=== PATIENT | female | born 1985 | race Caucasian/White ===

== ENCOUNTER 2016-06-05 06:48 | Inpatient (IN) | payer OTHER ==
[2016-06-05] MEDS ORDERED: LIDOCAINE 1% (PRES FREE) 30 ML VIAL ONE (07:00)
[2016-06-05] MEDS ORDERED: OXYTOCIN IN LR 0 ML IV ONE (07:00)
[2016-06-05] MEDS ORDERED: PUMP TUBING ONE (07:00)
[2016-06-05] MEDS ORDERED: OXYTOCIN 10 UNITS/ML VIAL ONE (07:00)
[2016-06-05] MEDS ORDERED: MINERAL OIL 25 ML BOT ONE (07:00)
[2016-06-05] MEDS ORDERED: LIDOCAINE Viscous 2% 15 ML UDCUP ONE (07:00)
[2016-06-05] MEDS ORDERED: OXYTOCIN 10 UNITS/ML VIAL IM ONE (08:25)
[2016-06-05] MEDS ORDERED: ACETAMINOPHEN 325 MG TABLET PO PRN (08:30)
[2016-06-05] MEDS ORDERED: DOCUSATE SODIUM 100 MG CAPSULE PO PRN (08:30)
[2016-06-05] MEDS ORDERED: BENZOCAINE/MENTHOL 60 APPLIC/BOT TP PRN (08:30)
[2016-06-05] MEDS ORDERED: LANOLIN 50 APPLIC/7G TUBE TP PRN (08:30)
--- NOTE | 2016-06-05 09:56 | PCMAN ---
OB Admission Note - History : 2 Term: 1 Livin Gestational Age (weeks): 39 Days (#/7): 6 Admit Cervical Dilation:: 10 Admit Station:: +2 Admit Presentaton:: vertex Membrane Status: Ruptured Rupture (Date): 06/05/16 Rupture (Time): 05:50 Membranes Comment:: clear Labor Onset (Date): 06/05/16 Contractions: Yes Contraction Frequency:: 2-3 mins Status:: Cat 1 EFW:: 7lbs 9 ozs Summary of Course:: Morenita presented to labor and delivery in active labor with an urge to push. She was moved to a triage room and laid on the bed on her side. With each contraction she was encouraged to bear down. She quickly delivered a viable female infant without any tears. Onset of care was at 22 weeks. She had 10 visits. Weight gain of 10lbs. Dated by a first trimester UN. GBS was negative. Her care was complicated by elevated BPs at 37 weeks. She was monitored for GHTN. No labs drawn and she remained asymptomatic for pre-eclampsia. - Labs Blood Type: A (+) positive Rubella Status: Immune GBS Status: Negative - Physical Exam General: Moderate Distress Neurological: Alert Cardiovascular: Regular Rate and Rhythm Genitourinary: Normal Female Genitalia Rectal Exam: Deferred Extremities: Full ROM Skin: Normal Color, Warm, Dry - Problems (1) Active labor Status: Acute Code: [id number]/Plan: A/ Term , , at 39 weeks and 6 days SROM for clear fluid Active labor P/ Anticipate imminent vaginal
--- NOTE | 2016-06-05 10:07 | PCMDEL ---
Delivery Note - Labor 1st stage (hr/min):: 4 hours and 42 mins 2nd stage (hr/min):: 10 mins 3rd stage (hr/min):: 20 mins Pushed (hr/min):: 10 mins - Delivery Delivery (Date): 06/05/16 Delivery (Time): 07:12 Gender: Female Position: OA Umbilical Cord: 3 Vessel Delayed Cord Clamping:: > 3 min 1 Minute Total: 9 5 Minute Total: 9 Placenta:: Bowers, intact EBL:: 200 Perineum:: Intact Anesthesia/Meds:: None Length ROM:: 1 hr and 22 mins Comments:: Vaginal Delivery Note: Stage I: Patient is a 31 year-old with an MEREDITH of who presents to L&D at 39 weeks and 6 days gestation. Her care has been complicated by elevated BPs. Her GBS screen was Negative. The patient was admitted on 06/05/16 06:54. Membranes ruptured on 06/05/16 at 05:50 for clear fluid. Active labor onset was at 02:30am. Induction/augmentation agents: SROM heart rate tracing revealed category 1 tracing. She was complete on admit. Anesthesia: none Stage II: Second stage was approximately 10 minutes in duration. She went on to effective spontaneous vaginal delivery, vertex; baby restituted to BRYAN, nuchal cord x1 not reducible. Remainder of baby delivered without complications. No shoulder dystocia evident. An episiotomy was not performed. Delayed cord clamping of > one minute undertaken. A baby was born at 07:12. Birthweight was pending. scores were 9 at one minute and 9 at five minutes. Stage III: Third stage was normal with spontaneous vaginal delivery of an intact placenta with a 3 vessel cord with central cord insertion. Her perineum and vagina were inspected and no laceration was noted. At the conclusion of the delivery the sponge and the needle count were correct. Estimated blood was 200 mls initially. She then had a large gush of blood measuring 340mls for a total of 540mls. Uterus firmed up nicely. Active management of third stage of labor was initiated with Pitocin 10mg IM after the gush. Complications: None.
[2016-06-05 10:21] VITALS: BMI 37.5
[2016-06-05] MEDS: IBUPROFEN 800 MG TABLET PO SCH ×2 (16:33→18:14)
[2016-06-05] MEDS: HYDROCODONE/ACETAMINOPHEN 5/325MG TABLET PO PRN (23:06)
[2016-06-06] MEDS: IBUPROFEN 800 MG TABLET PO SCH ×2 (00:21→09:59)
[2016-06-06] MEDS: HYDROCODONE/ACETAMINOPHEN 5/325MG TABLET PO PRN (05:48)
[2016-06-06 08:24] VITALS: BP 145/92
--- NOTE | 2016-06-06 11:29 | PDOC39B ---
Hospital Course: ADMIT DATE: 06/05/16 DISCHARGE DATE: 06/06/16 ADMISSION DIAGNOSES: Active Labor PROCEDURES: HISTORY OF PRESENT ILLNESS: 31 year old G2 T1 L1 at 39 weeks 6 days presenting with active labor. HOSPITAL COURSE: The patient delivered rapidly after arrival, had an uncomplicated vaginal . By day of discharge the patient is stable, well and ready to go home. - Physical Exam Vital Signs: Temp Pulse Resp BP Pulse Ox 97.7 F 66 18 145/92 06/06/16 08:21 06/06/16 08:21 06/06/16 08:21 06/06/16 08:21 General: Afebrile Psych/Mental Status: Mood/Affect Appropriate, Bonding Well Neurological: Grossly Intact Breast: Soft, Other (Nipple bruising) Fundus: Firm, Midline, Below Umbilicus Genitourinary: Normal Female Genitalia Lochia: Light Rectal Exam: Deferred - Discharge Diagnosis (1) Normal course Status: Acute - Discharge Plan Condition: Stable Disposition: Home Additional Instructions: Midwifery 'After the ' handout given to patient. Follow-Up: Tari Hilario CNM [Certified Nurse Director Of Global Marketing] - 06/19/16 1:00 pm
[2016-06-07] MEDS ORDERED: IV START KIT ONE (01:16)
== END 2016-06-06 15:30 | disposition home or self-care (01) | DRG 775 ==
LOC: FBC 06:48 → FBCOUT 06:48 → FBC 06:54 → FBCOUT 06:54 → FBC 07:42
PROVIDERS: ADMIT Advanced Practice Midwife; ATTEND Licensed Practical Nurse
PROC: 10E0XZZ Delivery of Products of Conception, External Approach (ICD-10-PCS; principal; 2016-06-05)
DX: O13.4 Gestational [pregnancy-induced] hypertension without significant proteinuria, complicating childbirth (principal); O69.81X0 Labor and delivery complicated by cord around neck, without compression, not applicable or unspecified; Z3A.39 39 weeks gestation of pregnancy; Z37.0 Single live birth